=== PATIENT | male | born 1965 | race Caucasian/White ===

== ENCOUNTER 2017-02-09 10:36 | Inpatient (IN) | payer BC ==
[~2017-02-09] VITALS: Ht 170.2 cm; Wt 70.3 kg
--- NOTE | 2017-02-09 17:20 | NUR ---
RECEIVED TO ROOM 2228 AT THIS TIME. VITAL SIGNS STABLE. 20G IV SITED TO PT'S LEFT FOREARM X2 ATTEMPTS. PT TOLERATED WITH MODERATE C/O PAIN. VITAL SIGNS STABLE. ASSESSMENT AND HISTORY OBTAINED PER FLOWSHEET. PLACED IN ENTERIC PRECAUTIONS FOR C-DIFF. EXPLAINED ISOLATION PROTOCOLS TO PT AND HE VERBALIZED UNDERSTANDING. CALL LIGHT IN REACH, WILL CONTINUE WITH PLAN OF CARE.
[2017-02-09 18:12] VITALS: BP 130/76; BMI 24.3
[2017-02-09 18:29] LABS: BASOPHILS 0.2 % (0.0-2.0); EOSINOPHILS 0.1 % (0-7); HEMATOCRIT 45.8 % (42.0-54.0); IMMATURE GRANULOCYTES 0.2 % (0-5); LYMPHOCYTES 8.6 % (15-50); MCH 30.9 pg (26.0-34.0); MCHC 34.9 g/dL (31.0-37.0); MCV 88.6 fL (80.0-100.0); MEAN PLATELET VOLUME 11.1 fL (7.4-10.4); MONOCYTES 17.6 % (2-11); NEUTROPHILS 73.3 % (40-80); PLATELET COUNT 233 10x3/uL (130-400); RBC 5.17 10x6/uL (4.20-6.10); RDW 13.1 % (11.5-14.5); WBC 12.2 10x3/uL (4.8-10.8)
[2017-02-09 18:38] LABS: ANION GAP 11.2 mmol/L (8-16); CARBON DIOXIDE 32.4 mmol/L (21.0-32.0); POTASSIUM - SERUM 3.6 mmol/L (3.5-5.1)
[2017-02-09 18:41] LABS: ALBUMIN 3.9 g/dL (3.4-5.0); ALKALINE PHOSPHATASE 82 U/L (46-116); ALT (SGPT) 31 U/L (10-68); BILIRUBIN - TOTAL 0.46 mg/dL (0.2-1.3); CALC OSMOLALITY 280 mosm/kg (275-300); CALCIUM 9.3 mg/dL (8.5-10.1); CARBON DIOXIDE 31.4 mmol/L (21.0-32.0); CHLORIDE - SERUM 98 mmol/L (98-107); GLUCOSE 116 mg/dL (74-106); POTASSIUM - SERUM 3.2 mmol/L (3.5-5.1); PROTEIN - SERUM 7.4 g/dL (6.4-8.2); SODIUM 139 mmol/L (136-145); UREA NITROGEN 19 mg/dL (7-18); eGFR NON AFRICAN AMERICAN 83 mL/min (90-120)
[2017-02-09 19:00] VITALS: BP 103/58
--- NOTE | 2017-02-09 19:00 | NUR ---
PATIENT IN BED WATCHING TV. HOB 40 DEGREES. AAOX4. RR EVEN AND UNLABORED. 0 S/S OF DISTRESS. DENIES PAIN AT THIS TIME. IV TO LEFT FA PATENT WITH NO REDNESS OR SWELLING. SRX2. BED LOW. CALL LIGHT WITHIN REACH.
--- NOTE | 2017-02-09 21:45 | NUR ---
ASSESSMENT COMPLETE. NIGHTTIME MEDS GIVEN. MORPHINE GIVEN FOR PAIN OF A 02/20. WILL REASSESS.
[2017-02-09 23:00] VITALS: BP 120/65
--- NOTE | 2017-02-10 02:40 | NUR ---
ZOFRAN GIVEN FOR NAUSEA AND MORPHINE GIVEN FOR PAIN.
[2017-02-10 05:44] LABS: BASOPHILS 0.3 % (0.0-2.0); EOSINOPHILS 0.2 % (0-7); HEMATOCRIT 45.2 % (42.0-54.0); HEMOGLOBIN 15.5 g/dL (13.5-17.5); IMMATURE GRANULOCYTES 0.4 % (0-5); LYMPHOCYTES 14.2 % (15-50); MCH 30.5 pg (26.0-34.0); MCHC 34.3 g/dL (31.0-37.0); MCV 88.8 fL (80.0-100.0); MEAN PLATELET VOLUME 10.9 fL (7.4-10.4); MONOCYTES 13.5 % (2-11); NEUTROPHILS 71.4 % (40-80); PLATELET COUNT 206 10x3/uL (130-400); RBC 5.09 10x6/uL (4.20-6.10); WBC 11.4 10x3/uL (4.8-10.8)
[2017-02-10 06:10] LABS: ALBUMIN 3.5 g/dL (3.4-5.0); ALKALINE PHOSPHATASE 76 U/L (46-116); ALT (SGPT) 31 U/L (10-68); BILIRUBIN - TOTAL 0.47 mg/dL (0.2-1.3); CALC OSMOLALITY 280 mosm/kg (275-300); CALCIUM 8.9 mg/dL (8.5-10.1); CARBON DIOXIDE 30.1 mmol/L (21.0-32.0); CHLORIDE - SERUM 101 mmol/L (98-107); GLUCOSE 114 mg/dL (74-106); POTASSIUM - SERUM 3.3 mmol/L (3.5-5.1); PROTEIN - SERUM 6.7 g/dL (6.4-8.2); SODIUM 139 mmol/L (136-145); UREA NITROGEN 17 mg/dL (7-18); eGFR NON AFRICAN AMERICAN 83 mL/min (90-120)
--- NOTE | 2017-02-10 07:20 | NUR ---
MORPHINE GIVEN FOR PAIN.
[2017-02-10 07:55] VITALS: BP 130/70
[2017-02-10 12:22] VITALS: BP 127/74
[2017-02-10 13:23] VITALS: Ht 170.2 cm; Wt 70.3 kg
[2017-02-10 15:24] VITALS: BP 126/60
[2017-02-10 20:00] VITALS: BP 119/73
--- NOTE | 2017-02-10 20:00 | NUR ---
ASSESSMENT COMPLETED, NO ACUTE DISTRESS NOTED, DENIES NEEDS AT THIS TIME, FALL AND ISOLATION PRECAUTIONS IN PLACE, CL IN REACH, WILL MONITOR
--- NOTE | 2017-02-10 21:31 | NUR ---
MEDS GIVEN PER MAR, JALEN WELL, CL IN REACH
--- NOTE | 2017-02-10 21:36 | NUR ---
PRN MORPHINE GIVEN FOR C/O ABD PAIN 04/22, JALEN WELL, DENIES FURTHER NEEDS, CL IN REACH
[2017-02-11] VITALS: BP 134/74
--- NOTE | 2017-02-11 01:22 | NUR ---
RESTING WITH EYES CLOSED, RESP WITH EASE, NO ACUTE DISTRESS NOTED, FALL AND ISOLATION PRECAUTIONS IN PLACE, CL IN REACH
--- NOTE | 2017-02-11 02:29 | NUR ---
FLAGYL HUNG ALONG WITH MAINTENANCE FLUIDS, JALEN WELL, DENIES NEEDS, CL IN REACH
[2017-02-11 04:00] VITALS: BP 104/59
[2017-02-11 07:06] LABS: BASOPHILS 0.4 % (0.0-2.0); EOSINOPHILS 1.2 % (0-7); HEMATOCRIT 40.2 % (42.0-54.0); HEMOGLOBIN 13.5 g/dL (13.5-17.5); IMMATURE GRANULOCYTES 0.4 % (0-5); LYMPHOCYTES 15.9 % (15-50); MCHC 33.6 g/dL (31.0-37.0); MCV 89.3 fL (80.0-100.0); MEAN PLATELET VOLUME 10.6 fL (7.4-10.4); MONOCYTES 14.6 % (2-11); NEUTROPHILS 67.5 % (40-80); PLATELET COUNT 168 10x3/uL (130-400); RDW 13.1 % (11.5-14.5)
[2017-02-11 07:26] LABS: WBC 7.7 10x3/uL (4.8-10.8)
[2017-02-11 07:30] LABS: ALBUMIN 2.8 g/dL (3.4-5.0); ALKALINE PHOSPHATASE 59 U/L (46-116); ALT (SGPT) 35 U/L (10-68); BILIRUBIN - TOTAL 0.32 mg/dL (0.2-1.3); CALC OSMOLALITY 274 mosm/kg (275-300); CALCIUM 8.2 mg/dL (8.5-10.1); CARBON DIOXIDE 26.9 mmol/L (21.0-32.0); CHLORIDE - SERUM 106 mmol/L (98-107); CREATININE - SERUM 0.9 mg/dL (0.6-1.3); GLUCOSE 108 mg/dL (74-106); MAGNESIUM - SERUM 1.9 mg/dL (1.8-2.4); PHOSPHOROUS 2.6 mg/dL (2.5-4.9); POTASSIUM - SERUM 3.9 mmol/L (3.5-5.1); PROTEIN - SERUM 5.5 g/dL (6.4-8.2); SODIUM 138 mmol/L (136-145); UREA NITROGEN 8 mg/dL (7-18); eGFR NON AFRICAN AMERICAN > 90 mL/min (90-120)
[2017-02-11 08:41] VITALS: BP 122/68
--- NOTE | 2017-02-11 09:00 | NUR ---
ASSESSMENT PER FLOW SHEET.PT WITHOUT DISTRESS.CALL LIGHT IN REACH.ISOLATION MAINTAINED.
[2017-02-11 12:30] VITALS: BP 124/69
--- NOTE | 2017-02-11 14:34 | NUR ---
REMAINS WITHOUT DISTRESS.CALL LIGHT IN REACH.ISOLATION MAINTAINED
[2017-02-11 16:05] VITALS: BP 136/73
--- NOTE | 2017-02-11 19:20 | NUR ---
REMAINS WITHOUT NEEDS,WITHOUT CHANGE.CONT PLAN OF CARE
--- NOTE | 2017-02-11 19:40 | NUR ---
ASSESSMENT COMPLETED, NO ACUTE DISTRESS NOTED, DENIES NEEDS OR DISCOMFORT AT THIS TIME, SR'S UP, CL IN REACH, WILL MONITOR
[2017-02-11 20:00] VITALS: BP 112/60
--- NOTE | 2017-02-11 20:58 | NUR ---
MEDS GIVEN PER MAR, JALEN WELL, URINAL EMPTIED, ICE WATER PROVIDED, DENIES FURTHER NEEDS, CL IN REACH
--- NOTE | 2017-02-11 21:50 | NUR ---
LYING IN BED WATHCING TV, DENIES NEEDS, FALL AND ISOLATION PRECAUTIONS REMAIN IN PLACE, CL IN REACH
--- NOTE | 2017-02-11 23:42 | NUR ---
RESTING WITH EYES CLOSED, RESP WITH EASE, NO DISTRESS NOTED, SR'S UP, CL IN REACH
[2017-02-12 04:00] VITALS: BP 128/75
[2017-02-12 04:47] LABS: BASOPHILS 0.5 % (0.0-2.0); EOSINOPHILS 1.7 % (0-7); HEMATOCRIT 42.4 % (42.0-54.0); HEMOGLOBIN 14.3 g/dL (13.5-17.5); IMMATURE GRANULOCYTES 1.4 % (0-5); LYMPHOCYTES 18.7 % (15-50); MCHC 33.7 g/dL (31.0-37.0); MCV 89.1 fL (80.0-100.0); MEAN PLATELET VOLUME 10.9 fL (7.4-10.4); MONOCYTES 16.3 % (2-11); NEUTROPHILS 61.4 % (40-80); PLATELET COUNT 175 10x3/uL (130-400); RBC 4.76 10x6/uL (4.20-6.10); RDW 12.9 % (11.5-14.5); WBC 6.5 10x3/uL (4.8-10.8)
[2017-02-12 04:59] LABS: CALC OSMOLALITY 276 mosm/kg (275-300); CALCIUM 8.5 mg/dL (8.5-10.1); CARBON DIOXIDE 27.5 mmol/L (21.0-32.0); CHLORIDE - SERUM 103 mmol/L (98-107); CREATININE - SERUM 0.9 mg/dL (0.6-1.3); GLUCOSE 111 mg/dL (74-106); MAGNESIUM - SERUM 1.9 mg/dL (1.8-2.4); POTASSIUM - SERUM 3.7 mmol/L (3.5-5.1); SODIUM 139 mmol/L (136-145); UREA NITROGEN 6 mg/dL (7-18); eGFR NON AFRICAN AMERICAN > 90 mL/min (90-120)
[2017-02-12 05:11] LABS: PHOSPHOROUS 3.5 mg/dL (2.5-4.9)
[2017-02-12 08:18] VITALS: BP 114/74
--- NOTE | 2017-02-12 08:28 | NUR ---
AWAKE AND ALERT. ORIENTED X3. NO C/O AT THIS TIME. LUNGS ARE CLEAR BILATERALLY, NO COUGH NOTED. SKIN IS INTACT WITHOUT REDNESS. SL TO LEFT FOREARM IS PATENT WITHOUT REDNESS AT INSERTION SITE. REPORTS HAVEING MULTIPLE LOOSE STOOLS IN PM. DENIES NEEDS. BREAKFAST SERVED IN ROOM.
--- NOTE | 2017-02-12 10:30 | NUR ---
RESTING QUIETLY IN ROOM. DENIES NEEDS.
[2017-02-12 11:53] VITALS: BP 115/73
--- NOTE | 2017-02-12 12:30 | NUR ---
GIVEN REGUALR TRAY FOR LUNCH. WILL MONITOR.
--- NOTE | 2017-02-12 14:00 | NUR ---
ATE ABOUT HALF OF LUNCH TRAY WITHOUT SIGNS OF NAUSEA OR PAIN. DENIES NEEDS.
[2017-02-12 16:15] VITALS: BP 125/74
--- NOTE | 2017-02-12 18:32 | NUR ---
ATE ALMOST ALL OF SUPPER. REPORTED LOOSE STOOL AFTER EATING. NO C/O NAUSEA OF EMESIS. EXCITED ABOUT PROSPECT OF GOING HOME TOMMORROW. REPORTED SOME SMALL FLECKS OF BRIGHT RED BLOOD IN STOOL PASSED AFTER SUPPER. HE DOES HOWEVER HAVE HEMMORROIDS. WILL MONITOR.
--- NOTE | 2017-02-12 19:30 | NUR ---
PT LYING IN BED WATCHING TV, ASSESSMENT COMPLETED, NO DISTRESS NOTED, DENIES DISCOMFORT OR NEEDS AT THIS TIME, SR'S UP, CL IN REACH, WILL MONITOR
[2017-02-12 20:00] VITALS: BP 117/81
--- NOTE | 2017-02-12 20:52 | NUR ---
MEDS GIVEN PER MAR, IV INFILTRATED, PULLED WITH CATH INTACT, PT REQUEST TO NOT BE RESITED, DENIES NEEDS, FALL AND ISOLATION PRECAUTIONS IN PLACE
--- NOTE | 2017-02-12 21:50 | NUR ---
LYING IN BED WATCHING TV, NO DISTRESS NOTED, DENIES NEEDS, SR'S UP X2, CL IN REACH
--- NOTE | 2017-02-12 23:40 | NUR ---
RESTINTG WITH EYES CLOSED, RESP WITH EASE, NO DISTRESS NOTED, FALL PRECAUTIONS IN PLACE, CL IN REACH
--- NOTE | 2017-02-13 01:17 | NUR ---
RESTING WITH EYES CLOSED, RESP WITH EASE, NO DISTRESS NOTED, SR'S UP, CL IN REACH
[2017-02-13 05:26] LABS: BASOPHILS 0.5 % (0.0-2.0); EOSINOPHILS 2.1 % (0-7); HEMATOCRIT 44.9 % (42.0-54.0); HEMOGLOBIN 15.3 g/dL (13.5-17.5); IMMATURE GRANULOCYTES 2.2 % (0-5); LYMPHOCYTES 17.2 % (15-50); MCH 29.8 pg (26.0-34.0); MCHC 34.1 g/dL (31.0-37.0); MCV 87.5 fL (80.0-100.0); MONOCYTES 11.9 % (2-11); NEUTROPHILS 66.1 % (40-80); RBC 5.13 10x6/uL (4.20-6.10)
[2017-02-13 05:31] LABS: PLATELET COUNT 211 10x3/uL (130-400); WBC 8.2 10x3/uL (4.8-10.8)
[2017-02-13 06:16] LABS: CALC OSMOLALITY 274 mosm/kg (275-300); CALCIUM 8.8 mg/dL (8.5-10.1); CARBON DIOXIDE 26.9 mmol/L (21.0-32.0); CHLORIDE - SERUM 103 mmol/L (98-107); GLUCOSE 103 mg/dL (74-106); PHOSPHOROUS 3.8 mg/dL (2.5-4.9); POTASSIUM - SERUM 3.7 mmol/L (3.5-5.1); SODIUM 138 mmol/L (136-145); UREA NITROGEN 11 mg/dL (7-18); eGFR NON AFRICAN AMERICAN 83 mL/min (90-120)
[2017-02-13] MEDS ORDERED: FLORASTOR250 MG PO (07:26)
[2017-02-13] MEDS ORDERED: FLAGYL 500500 MG/100 PO (07:26)
[2017-02-13 08:06] VITALS: BP 124/74
--- NOTE | 2017-02-13 09:07 | NUR ---
Patient Name: CORI HUSAIN Admission Status: Urgent Accout number: [id number] Admission Date: 02-09-2017 : 1965 Admission Diagnosis:ENTEROCOLITIS DUE TO CLOSTRIDIUM DIFFICILE Attending: JOSE Current LOS: 4 Anticipated DC Date: 02-13-2017 Planned Disposition: Home Primary Insurance: [employer] TRUE BLUE PPO Discharge Planning Comments: CM MET WITH PATIENT REGARDING D/C NEEDS AND PLANS. PATIENT IS DISCHARGING HOME TODAY - (LOUIE) DRIVING HIM. PATIENT STATED HE HAS 2 STEPS TO ENTER HOME AND NO STAIRS INSIDE. PATIENT IS INDEPENDENT WITH HIS CARE AND HAS CRUTCHES AND A CANE AT HOME IF EVER NEEDED. PATIENTS PCP IS DR. SALVADOR AND PHARMACY IS [facility] [address] PATIENT DENIED HOME HEALTH OR ANY OTHER NEEDS FOR DISCHARGE. CM WILL CONTINUE TO FOLLOW PATIENT WITH D/C NEEDS AND PLANS. PCP DR. MODESTO [facility]ER [address] [phone] LOUIE () [phone] Certified Lactation Educator: Vania Parkinson Is the patient Alert and Oriented? Yes 0 * How many steps to enter\exit or inside your home? 2 0 * PCP DR. SALVADOR 0 * Pharmacy [facility] [address] 0 * Preadmission Environment Home with Family 0 * ADLs Independent 0 * Equipment Cane Crutch 0 * List name and contact numbers for known caregivers / representatives who currently or will assist patient after discharge: LOUIE (SPOUSE) [phone] 0 * Community resources currently utilized None 0 * Additional services required to return to the preadmission environment? Yes 0 * Can the patient safely return to the preadmission environment? Yes 0 * Has this patient been hospitalized within the prior 30 days at any hospital? No 0 Grand Total: 0
--- NOTE | 2017-02-14 07:10 | HP ---
PATIENT: CORI HUSAIN MEDICAL RECORD: [id number] ACCOUNT: [id number] LOCATION:[id number] : [birth year] ADMISSION DATE: 02/09/17 HISTORY AND PHYSICAL EXAMINATION HISTORY OF PRESENT ILLNESS: He is a 52-year-old gentleman who presented to the office last week with diarrhea and some nausea. He had been on antibiotics a few weeks prior for an infected sebaceous cyst on his back. That area has cleared up well. We had ____ some stool culture and started him empirically on some metronidazole. He got worse with his nausea and vomiting, unable to keep any liquids down including the metronidazole. C. diff results did come back positive. He did have a CT of his abdomen today as an outpatient prior to our visit, which showed some dilatation of the cecum. He had some haziness surrounding the cecum, suggesting mild inflammatory change. His white count was 12.8. He was afebrile, but dehydrated and was to be admitted for the C. difficile colitis and dehydration. PAST MEDICAL HISTORY: Significant for diverticulosis. He had a colonoscopy with Dr. Chowdhury back in 2013. MEDICATIONS: He otherwise takes no medications. FAMILY HISTORY: Noncontributory. SOCIAL HISTORY: He does smoke half pack of cigarettes a day. No illicit drug use. PAST SURGICAL HISTORY: Includes knee arthroscopy earlier this year and colonoscopies with Dr. Chowdhury. REVIEW OF SYSTEMS: CONSTITUTIONAL: He denies any visual or auditory changes. HEENT: Dry oral mucosa with some sore throat and dry mouth. CARDIOPULMONARY: Denies any chest pain or palpitations. No cough or hemoptysis. GASTROINTESTINAL: Has had nausea, vomiting and diarrhea with some yellowish stool. GENITOURINARY: Denies any dysuria, but has had decreased urine output, has had some muscle cramps. MUSCULOSKELETAL: No joint pain or swelling. NEUROLOGIC: No headache or syncope. PHYSICAL EXAMINATION: VITAL SIGNS: Blood pressure 120/78, pulse of 88, respirations 12, temperature 98.6. HEENT: Dry oral mucosa, otherwise unremarkable. NECK: Supple. No JVD or adenopathy. HEART: S1 and S2. No murmurs or rubs. LUNGS: Clear. No rhonchi, rales or wheezing. ABDOMEN: Soft, nondistended. Hyperactive bowel sounds. Mild diffuse tenderness. No rebound, guarding or rigidity. EXTREMITIES: Had no clubbing, cyanosis or edema. LABORATORY DATA: White count was 12.8, H&H 16 and 48. HISTORY AND PHYSICAL [id number] CORI HUSAIN PLAN: We are going to admit the patient and start him on IV fluids, Zofran IV, and IV Flagyl. We will put him on electrolyte protocol. Consult GI and continue to follow clinically. TRANSINT:[id number] Voice Confirmation ID: [id number] DOCUMENT ID: [id number] ANITA SALVADOR DO at 0710 CC: [id number] DICTATION DATE: 02/09/17 1625 WRAPPER SORTER: 02/09/17 1826 ADM IN [id number] [place] [address]
== END 2017-02-13 11:51 | disposition home or self-care (01) | DRG 373 ==
LOC: D.CT 10:36 → D.MS 16:34
PROVIDERS: Family Medicine; ADMIT Family Medicine
DX: A04.7 Enterocolitis due to Clostridium difficile (principal); F17.200 Nicotine dependence, unspecified, uncomplicated; E86.0 Dehydration

== ENCOUNTER → 2017-04-05 15:48 | Outpatient (CLI) | payer BC ==
[2017-02-10 13:23] VITALS: BMI 24.2
[~2017-04-05 15:48] MED LIST: FLAGYL 500500 MG/100 PO; FLORASTOR250 MG PO
[2017-04-05 16:08] LABS: BASOPHILS 0.6 % (0-2); EOSINOPHILS 4.2 % (0-7); HEMATOCRIT 47.9 % (42.0-54.0); IMMATURE GRANULOCYTES 0.5 % (0-5); LYMPHOCYTES 13.3 % (15-50); MCH 30.7 pg (26.0-34.0); MCHC 33.4 g/dL (31.0-37.0); MCV 91.9 fL (80.0-100.0); MEAN PLATELET VOLUME 12.2 fL (7.4-10.4); MONOCYTES 5.7 % (2-11); NEUTROPHILS 75.7 % (40-80); RBC 5.21 10x6/uL (4.20-6.10); RDW 13.7 % (11.5-14.5); WBC 7.9 10x3/uL (4.8-10.8)
[2017-04-05 16:09] LABS: PLATELET COUNT 150 10x3/uL (130-400)
[2017-04-05 17:14] LABS: ERYTHROCYTE SEDIMENTATION RATE 0 mm/hr (0-20)
== END | disposition home or self-care (01) ==
LOC: D.LABREF 15:48
PROVIDERS: Internal Medicine Gastroenterology
DX: K52.9 Noninfective gastroenteritis and colitis, unspecified (principal)

== ENCOUNTER → 2017-04-27 08:39 | Outpatient (CLI) | payer BC ==
[2017-02-10 13:23] VITALS: BMI 24.2
[2017-04-27 09:19] LABS: ANION GAP 11.7 mmol/L (8-16); C-REACTIVE PROTEIN 4.4 mg/dL (0.0-0.9); CALCIUM 8.9 mg/dL (8.5-10.1); CARBON DIOXIDE 28.5 mmol/L (21.0-32.0); CREATININE - SERUM 1.1 mg/dL (0.6-1.3); POTASSIUM - SERUM 3.2 mmol/L (3.5-5.1)
== END | disposition home or self-care (01) ==
LOC: D.LAB 08:39 → D.RAD 09:30
PROVIDERS: Internal Medicine Gastroenterology
DX: R11.2 Nausea with vomiting, unspecified (principal); R63.4 Abnormal weight loss